=== PATIENT | male | born 1935 | race American Indian/Alaskan Native ===

== ENCOUNTER 2018-12-17 17:08 | Outpatient (CLI) | payer MEDICARE, OTHER | END 2018-12-17 17:09 | disposition home or self-care (01) | LOC: LAB 17:08 ==

== ENCOUNTER 2018-12-20 09:11 | Outpatient (CLI) | payer MEDICARE, OTHER | END 2018-12-20 09:12 | disposition home or self-care (01) | LOC: RAD 09:11 ==